=== PATIENT | female | born 1975 ===

== ENCOUNTER 2016-09-10 22:20 | Emergency (ER) | payer OTHER ==
[2016-09-10] MEDS ORDERED: Oxycodone/Acetaminophen 5/325 mg Tab PO STA (23:20)
[2016-09-10] MEDS ORDERED: Oxycodone/Acetaminophen 5/325 mg Tab ONE (23:27)
--- NOTE | 2016-09-11 00:12 | C.PDOC ---
History Of Present Illness 41 y/o female presents to ED with c/o right shoulder pain, radiating to arm and hand, for 4-5 days. Patient denies trauma, weakness, or numbness. Patient was seen by PMD for similar pain to lower rextremity, diagnosed with arthritis, however patients states pain in right shoulder feels worse. Patient applied IcyHot patches w/o relief; no pain meds taken. Time Seen by Provider: 09/10/16 23:06 Chief Complaint (Nursing): Upper Extremity Problem/Injury History Per: Patient History/Exam Limitations: no limitations Onset/Duration Of Symptoms: Days Current Symptoms Are (Timing): Still Present Quality: "Pain" Exacerbating Factor(s): Movement Recent travel outside of the [place]: No Past Medical History Reviewed: Historical Data, Nursing Documentation, Vital Signs Vital Signs: Last Vital Signs Temp 98.7 F 09/11/16 00:25 Pulse 75 09/11/16 00:25 Resp 18 09/11/16 00:25 BP 118/75 09/11/16 00:25 Pulse Ox 97 09/11/16 00:56 - Medical History PMH: Migraine Family History: States: Unknown Family Hx - Social History Hx Tobacco Use: No Hx Alcohol Use: No Hx Substance Use: No - Immunization History Hx Tetanus Toxoid Vaccination: No Hx Influenza Vaccination: No Hx Pneumococcal Vaccination: No Review Of Systems Except As Marked, All Systems Reviewed And Found Negative. Constitutional: Negative for: Fever, Chills Musculoskeletal: Positive for: Shoulder Pain, Arm Pain Skin: Negative for: Rash Neurological: Negative for: Weakness, Numbness Physical Exam - Physical Exam Appears: Non-toxic, No Acute Distress Skin: Warm, Dry Head: Atraumatic, Normacephalic Neck: No Midline Cervical Tenderness, No Paracervical Tenderness, No Step Off Deformity, Supple Chest: Symmetrical Cardiovascular: Rhythm Regular Respiratory: Normal Breath Sounds, No Rales, No Rhonchi, No Wheezing Back: Normal Inspection, No Vertebral Tenderness, No Paraspinal Tenderness Extremity: Normal ROM, Tenderness (anterior right shoulder), Capillary Refill ( < 2 sec. ), No Deformity, No Swelling, Other (full ROM right shoulder w/ pain ) Extremity: Bilateral: Normal Color And Temperature Pulses: Left Radial: Normal, Right Radial: Normal Neurological/Psych: Oriented x3, Normal Speech, Normal Cognition, Normal Motor, Normal Sensation ED Course And Treatment O2 Sat by Pulse Oximetry: 97 (RA) Pulse Ox Interpretation: Normal - Other Rad Right Shoulder X-Ray: Interpreted by Me Interpretation: calcified tendon shoulder joint, no fx or dislocation Progress Note: Treated with Percocet and Valium. Patient placed in arm sling for support. On reassessment, patient is resting comfortably, and is in no acute distress. Patient instructed to taked medications as directed and to follow up with clinic/PMD within 1-2 days. Disposition - Disposition Disposition: HOME/ ROUTINE Disposition Time: 00:09 Condition: STABLE Additional Instructions: Please follow up with your doctor Take meds as directed Return to ER if worse Prescriptions: Acetaminophen with Codeine [Tylenol with Codeine #3 Tablet] 1 each PO QID #14 tablet Naproxen [Naprosyn] 1 tab PO BID PRN #25 tab PRN Reason: Pain Instructions: Calcific Tendinitis (ED) - Clinical Impression Clinical Impression: Shoulder pain, right, Tendinitis - PA / ASSISTANT PLANT MANAGER / Resident Statement MD/DO has reviewed & agrees with the documentation as recorded. - Scribe Statement The provider has reviewed the documentation as recorded by the Misty Aguayo Provider Scribe Attestation: All medical record entries made by the Misty were at my direction and personally dictated by me. I have reviewed the chart and agree that the record accurately reflects my personal performance of the history, physical exam, medical decision making, and the department course for this patient. I have also personally directed, reviewed, and agree with the discharge instructions and disposition.
[2016-09-11 00:28] VITALS: BP 118/75; PULSE 75; RESP 18; TEMP 98.7
[2016-09-11 00:56] VITALS: O2SAT 97
--- NOTE | 2016-09-11 08:48 | RAD ---
PROCEDURE: Radiographs of the Right Shoulder HISTORY: pain COMPARISON: No prior. FINDINGS: BONES: Normal. No fracture. JOINTS: Normal. Glenohumeral and acromioclavicular joints preserved. No osteoarthritis. SOFT TISSUES: Normal. OTHER FINDINGS: None. IMPRESSION: Normal radiographs of the right shoulder.
== END 2016-09-11 00:28 | disposition home or self-care (01) ==
LOC: C.ER 22:20
DX: M25.511 Pain in right shoulder (principal); M75.31 Calcific tendinitis of right shoulder

== ENCOUNTER 2017-02-20 07:33 | Day surgery (SDC) | payer OTHER ==
[2017-02-20] MEDS ORDERED: Lidocaine 1% w Epi 1:100,000 Inj INJ ONE (08:05)
[2017-02-20] MEDS ORDERED: Acetaminophen-Codeine 300/30 mg Tab PO PRN (08:58)
[2017-02-20] MEDS ORDERED: Dextrose 5%/0.45% NS 1,000 ML IV SCH (09:00)
[2017-02-20] MEDS ORDERED: Midazolam 2 MG/2 ML VIAL ONE (10:27)
[2017-02-20] MEDS ORDERED: Propofol 10 mg/ml Inj (20 ML) ONE (10:27)
[2017-02-20] MEDS ORDERED: Succinylcholine Chloride 20 mg/ml Syr (5 ml) IV ONE (10:29)
[2017-02-20] MEDS ORDERED: Rocuronium 10 mg/ml (10 ml) ONE (10:29)
[2017-02-20] MEDS ORDERED: EPINEPHrine 1:1000 Nasal Sol(30mL) ONE (10:31)
[2017-02-20] MEDS ORDERED: ceFAZolin IV 2 gm in Dextrose 1 GM/50 ML BAG IVPB ONE (10:31)
[2017-02-20] MEDS ORDERED: Lactated Ringer's 1,000 ML IV ONE (10:35)
[2017-02-20] MEDS ORDERED: Phenylephrine 10 mg/ml Inj ONE (11:05)
[2017-02-20] MEDS ORDERED: HYDROmorphone 0.5 mg/0.5 ml ISec IVP PRN (11:58)
[2017-02-20 14:49] VITALS: BP 128/72; PULSE 80; RESP 18; TEMP 97; O2SAT 99
--- NOTE | 2017-02-20 22:43 | OP ---
PROCEDURE DATE: 02/20/2017 PREOPERATIVE DIAGNOSES: Deviated septum and enlarged turbinates. POSTOPERATIVE DIAGNOSES: Deviated septum and enlarged turbinates. PROCEDURE: Septoplasty and bilateral inferior turbinate reduction. SIGNIFICANT FINDINGS: Deviated septum and enlarged inferior turbinate. DESCRIPTION OF PROCEDURE: The patient was brought into the room, placed in supine position, anesthesia was initiated through an ET tube. The patient was draped in the usual manner. Adrenaline soaked pledgets were inserted into the nasal cavity that remained there for at least 5 minutes and removed. The septum was injected on both sides with lidocaine and with epinephrine. A Hemitransfixion incision was made on the left and a mucoperichondrial flap was raised. A vertical incision was made in the cartilage leaving a 1.5 cm anterior and superior strut and the mucoperichondrial flap was raised on the other side. Deviated portions of the bone and the cartilage were removed using forceps and chisel. The anterior portion of the septum was noted to be deviated and scored with a knife. Next, a quilting suture was used to suture the two flaps together and closed Hemitransfixion incision. Next, a 0-degree scope was inserted into the nasal cavity. The inferior turbinates were noted to be enlarged. They were reduced in sides, first on the left, then on the right going from an inferior to superior and anterior to posterior direction using scissors. Bleeding was controlled using suction cautery on both sides. Stents were placed. The patient was taken off of anesthesia and taken to the recovery room in stable manner. Chandan Roland MD
== END 2017-02-20 14:52 | disposition home or self-care (01) ==
LOC: C.SDS 07:33
PROVIDERS: ATTEND Otolaryngology
DX: J34.2 Deviated nasal septum (principal); J34.3 Hypertrophy of nasal turbinates
CPT/HCPCS: 30140; 30520; 88304; J0690; J1100; J1170; J2001; J2250; J2370; J2704; J3010; J7030; J7120

== ENCOUNTER 2017-10-10 15:25 | Emergency (ER) | payer OTHER ==
[2017-10-10 15:34] VITALS: TEMP 98.5; O2SAT 97
[2017-10-10 16:14] LABS: BASO % 0.3 % (0.0-2.0); HEMOGLOBIN 13.1 g/dL (11.0-16.0); LYMPH # 1.4 K/uL (1.0-4.3); LYMPH % 13.7 % (20.0-40.0); MEAN CELL VOLUME 90.1 fL (81.0-99.0); MEAN CORPUSCULAR HEMOGLOBIN 30.1 pg (27.0-31.0); MEAN CORPUSCULAR HGB CONC 33.4 g/dL (33.0-37.0); MEAN PLATELET VOLUME 9.5 fL (7.2-11.7); MONO # 0.5 K/uL (0.0-0.8); MONO % 4.4 % (0.0-10.0); NEUT # 8.5 K/uL (1.8-7.0); NEUT % 81.6 % (50.0-75.0); RBC 4.34 Mil/uL (3.80-5.20); RED CELL DISTRIBUTION WIDTH 13.4 % (11.5-14.5); WHITE BLOOD COUNT 10.5 K/uL (4.8-10.8)
[2017-10-10 16:25] LABS: ALB/GLOB RATIO 1.2 (1.0-2.1); ALBUMIN 4.6 g/dL (3.5-5.0); ALT/SGPT 23 U/L (9-52); AST/SGOT 24 U/L (14-36); BLOOD UREA NITROGEN 10 mg/dL (7-17); CALCIUM 9.6 mg/dl (8.6-10.4); GFR AFRICAN-AMERICAN > 60; GFR NON-AFRICAN AMERICAN > 60
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
--- NOTE | 2017-10-10 17:10 | CT ---
PROCEDURE: CT HEAD WITHOUT CONTRAST. HISTORY: altered mental status COMPARISON: CT 06/02/2013 TECHNIQUE: Axial computed tomography images were obtained through the head/brain without intravenous contrast. Radiation dose: Total exam DLP = 871 mGy-cm. This CT exam was performed using one or more of the following dose reduction techniques: Automated exposure control, adjustment of the mA and/or kV according to patient size, and/or use of iterative reconstruction technique. FINDINGS: HEMORRHAGE: No intracranial hemorrhage. BRAIN: No mass effect or edema. No atrophy or chronic microvascular ischemic changes. VENTRICLES: Unremarkable. No hydrocephalus. CALVARIUM: Unremarkable. PARANASAL SINUSES: Unremarkable as visualized. No significant inflammatory changes. MASTOID AIR CELLS: Unremarkable as visualized. No inflammatory changes. OTHER FINDINGS: None. IMPRESSION: No acute intracranial finding
[2017-10-10 17:13] LABS: HCG,QUALITATIVE URINE NEGATIVE (NEGATIVE)
[2017-10-10 17:19] LABS: SQUAMOUS EPITHIAL < 1 /hpf (0-5); URINE BACTERIA RARE (<OCC); URINE BILIRUBIN NEGATIVE (NEGATIVE); URINE BLOOD NEGATIVE (NEGATIVE); URINE CLARITY Clear (Clear); URINE COLOR Yellow (YELLOW); URINE GLUCOSE (UA) NORMAL (Normal); URINE LEUKOCYTE ESTERASE NEG Leu/uL (Negative); URINE PROTEIN NEGATIVE (NEGATIVE); URINE UROBILINOGEN NORMAL mg/dL (0.2-1.0)
[2017-10-10 17:23] LABS: BARBITURATES, UR NEGATIVE (NEGATIVE); BENZODIAZEPINES, UR NEGATIVE (NEGATIVE); OPIATES, UR NEGATIVE (NEGATIVE); PHENCYCLIDINE, UR NEGATIVE (NEGATIVE)
[2017-10-10 18:06] VITALS: BP 101/52; PULSE 79; RESP 18
== END 2017-10-10 18:25 | disposition home or self-care (01) ==
LOC: C.ER 15:25
DX: F63.81 Intermittent explosive disorder (principal)

== ENCOUNTER 2017-11-17 14:49 | Emergency (ER) | payer OTHER ==
[2017-11-17 14:52] VITALS: BP 104/71; PULSE 63; RESP 16; TEMP 98.8; O2SAT 100
--- NOTE | 2017-11-17 15:09 | C.PDOC ---
History Of Present Illness 42 year old female is BIBA to the emergency department status-post slipping and falling on a wet floor in [employer]. Patient reports that she fell backwards and reports pain to her left side. Patient is a poor historian, providing unclear details regarding the fall. Time Seen by Provider: 11/17/17 14:56 Chief Complaint (Nursing): Back Pain History Per: Patient, Family (daughter), Interlocker Maintainer (daughter) History/Exam Limitations: language barrier Quality Of Discomfort: "Pain" Past Medical History Reviewed: Historical Data, Nursing Documentation, Vital Signs Vital Signs: Last Vital Signs Temp 98.8 F 11/17/17 14:51 Pulse 63 11/17/17 14:51 Resp 16 11/17/17 14:51 BP 104/71 11/17/17 14:51 Pulse Ox 100 11/17/17 15:13 - Medical History PMH: Arthritis ("GENERALIZED"), Migraine Denies: Diabetes, Hepatitis, HIV, HTN, Seizures, Sexually Transmitted Disease Surgical History: No Surg Hx Family History: States: No Known Family Hx - Social History Hx Tobacco Use: No Hx Alcohol Use: No Hx Substance Use: No - Immunization History Hx Tetanus Toxoid Vaccination: No Hx Influenza Vaccination: No Hx Pneumococcal Vaccination: No Review Of Systems Review Of Systems: ROS cannot be obtained secondary to pt's inabilty to answer questions. Physical Exam - Physical Exam Appears: Non-toxic, No Acute Distress Skin: Warm, Dry Head: Atraumatic, Normacephalic Eye(s): bilateral: Normal Inspection Nose: Normal Neck: No Midline Cervical Tenderness, Paracervical Tenderness (left-sided), Supple Chest: Symmetrical, No Tenderness Cardiovascular: Rhythm Regular, No Murmur Respiratory: Normal Breath Sounds, No Decreased Breath Sounds, No Rales, No Rhonchi, No Wheezing Gastrointestinal/Abdominal: Normal Exam, Soft, No Tenderness, No Guarding, No Rebound Back: Normal Inspection, No Vertebral Tenderness, Paraspinal Tenderness (left lumbar) Pelvic: Other (left inguinal tenderness) Extremity: Normal ROM (of the knees), Tenderness (left knee, left lateral malleolus), Swelling (mild, to the left lateral malleolus) Pulses: Left Dorsalis Pedis: Normal, Right Dorsalis Pedis: Normal Neurological/Psych: Oriented x3, Normal Speech, Normal Cognition, Normal Motor, Normal Sensation ED Course And Treatment O2 Sat by Pulse Oximetry: 100 (RA) Pulse Ox Interpretation: Normal Medical Decision Making Medical Decision Making: Patient reports a rash from aspirin but takes Motrin at home for her migraines. Plan: Toradol 30mg IM POC Urine Test 1528 pt appears well, in no acute distress. less pain s/p toradol. d/c home Disposition Counseled Patient/Family Regarding: Diagnosis, Need For Followup, Rx Given - Disposition Referrals: [facility] [Outside] Disposition: HOME/ ROUTINE Disposition Time: 15:29 Condition: GOOD Additional Instructions: Por favor phuong un seguimiento con corbett mdico o n clnica mdshayan en 1-2 denis. Rhodes medicamentos recetados si es necesario para el dolor. Puede sentirse un poco ms dolorido maana; eso es comn, marcio comenzar a sentirse mejor. Regrese a la troy de emergencias por cualquier sntoma peor. Please follow up with your doctor or medical clinic in 1-2 days. Take medications as prescrbied if needed for pain. You may feel a bit more sore tomorrow; that is comnon, but will start to feel better. Return to ER for any worse symptoms. Prescriptions: Acetaminophen [Tylenol 325mg tab] 650 mg PO Q6 #30 tab Instructions: Muscle Strain (DC) Forms: Gen Discharge Inst Barbadian, [facility] (Barbadian) - Clinical Impression Clinical Impression: Muscle strain, multiple sites, Fall from slipping on wet surface - PA / VIDEO MANAGER / Resident Statement MD/DO has reviewed & agrees with the documentation as recorded. - Scribe Statement The provider has reviewed the documentation as recorded by the Scribe (Gabriel Kahn) All medical record entries made by the Scribe were at my direction and personally dictated by me. I have reviewed the chart and agree that the record accurately reflects my personal performance of the history, physical exam, medical decision making, and the department course for this patient. I have also personally directed, reviewed, and agree with the discharge instructions and disposition.
== END 2017-11-17 15:42 | disposition home or self-care (01) ==
LOC: C.ER 14:49
DX: T14.8XXA Other injury of unspecified body region, initial encounter (principal); W01.0XXA Fall on same level from slipping, tripping and stumbling without subsequent striking against object, initial encounter
CPT/HCPCS: 96372; 99284; J1885

== ENCOUNTER 2018-07-05 17:06 | Emergency (ER) | payer OTHER ==
[2018-07-05] MEDS ORDERED: Sodium Chloride 0.9% 1,000 ML IV SCH (17:30)
--- NOTE | 2018-07-05 17:34 | C.PDOC ---
History Of Present Illness Patient is a 43 year old female who presents to the ED c/o a 1 month history of dizziness with associated nausea. Patient was evaluated by her PMD and was supposed to have testing, but failed to complete them. She denies any headache, visual changes, CP, or SOB. Time Seen by Provider: 07/05/18 17:21 Chief Complaint (Nursing): Dizziness/Lightheaded History Per: Patient History/Exam Limitations: no limitations Onset/Duration Of Symptoms: Other (1 month) Current Symptoms Are (Timing): Still Present Recent travel outside of the [place]: No Additional History Per: Patient Past Medical History Reviewed: Historical Data, Nursing Documentation, Vital Signs Vital Signs: Last Vital Signs Temp 97.9 F 07/05/18 17:09 Pulse 89 07/05/18 17:09 Resp 20 07/05/18 17:09 BP 101/60 07/05/18 17:09 Pulse Ox 100 07/05/18 17:09 - Medical History PMH: Arthritis ("GENERALIZED"), Migraine Denies: Diabetes, Hepatitis, HIV, HTN, Seizures, Sexually Transmitted Disease Surgical History: No Surg Hx Family History: States: Unknown Family Hx - Social History Hx Tobacco Use: No Hx Alcohol Use: No Hx Substance Use: No - Immunization History Hx Tetanus Toxoid Vaccination: No Hx Influenza Vaccination: No Hx Pneumococcal Vaccination: No Review Of Systems Except As Marked, All Systems Reviewed And Found Negative. Neurological: Positive for: Dizziness Physical Exam - Physical Exam Appears: Non-toxic, No Acute Distress Skin: Normal Color, Warm, Dry Head: Atraumatic, Normacephalic Eye(s): bilateral: Normal Inspection, PERRL, EOMI Nose: Normal Oral Mucosa: Moist Chest: Symmetrical Cardiovascular: Rhythm Regular, No Murmur Respiratory: Normal Breath Sounds, No Rales, No Rhonchi, No Wheezing Gastrointestinal/Abdominal: Soft, No Tenderness Extremity: Normal ROM Neurological/Psych: Oriented x3, Normal Speech ED Course And Treatment - Laboratory Results Result Diagrams: 07/05/18 17:46 07/05/18 17:46 ECG Rhythm: Sinus Rhythm Interpretation Of ECG: Normal axis, normal intervals, no ST/T wave changes Rate From EC O2 Sat by Pulse Oximetry: 100 (on RA) Pulse Ox Interpretation: Normal - CT Scan/US CT Head Other Rad Studies (CT/US): Read By Radiologist, Radiology Report Reviewed CT/US Interpretation: IMPRESSION: No acute intracranial pathology identified. Under aeration of the mastoid air cells. Medical Decision Making Medical Decision Making: Plan: CAT Head EKG Labs POC Urine Urinalysis Antivert 25mg PO Zofran 4mg IVP IV FLuids Sudafed 30mg PO Assessment: dizziness 1854 - patient improved. No further dizziness. Will discharge home. Disposition Counseled Patient/Family Regarding: Studies Performed, Diagnosis, Need For Followup, Rx Given - Disposition Referrals: [facility] [Outside] Disposition: HOME/ ROUTINE Disposition Time: 18:54 Condition: STABLE Additional Instructions: follow up with your doctor or clinic within 2 days call to make an appointment take medications as prescribed return to hospital if symptoms worsens or progress Prescriptions: Meclizine [Meclizine*] 25 mg PO TID PRN #15 tab PRN Reason: Dizziness Ondansetron ODT [Zofran ODT] 4 mg PO TID PRN #12 odt PRN Reason: Nausea/Vomiting Pseudoephedrine HCl [Sudafed] 30 mg PO TID PRN #15 tablet PRN Reason: Cough And Congestion Instructions: Vertigo (a Type of Dizziness) Forms: Gen Discharge Inst Emirati, [facility] (Emirati) - Clinical Impression Clinical Impression: Dizziness - Scribe Statement The provider has reviewed the documentation as recorded by the Misty Duff All medical record entries made by the Brittibyessenia were at my direction and personally dictated by me. I have reviewed the chart and agree that the record accurately reflects my personal performance of the history, physical exam, medical decision making, and the department course for this patient. I have also personally directed, reviewed, and agree with the discharge instructions and di sposition.
[2018-07-05 17:49] LABS: BASO # 0.1 K/uL (0.0-0.2); EOS # 0.1 K/uL (0.0-0.7); EOS % 1.1 % (0.0-4.0); LYMPH % 25.2 % (20.0-40.0); MEAN CELL VOLUME 91.4 fL (81.0-99.0); MEAN CORPUSCULAR HEMOGLOBIN 29.8 pg (27.0-31.0); MEAN CORPUSCULAR HGB CONC 32.6 g/dL (33.0-37.0); MEAN PLATELET VOLUME 9.4 fL (7.2-11.7); MONO # 0.6 K/uL (0.0-0.8); MONO % 7.8 % (0.0-10.0); NEUT # 5.2 K/uL (1.8-7.0); NEUT % 64.9 % (50.0-75.0); RBC 4.37 Mil/uL (3.80-5.20); RED CELL DISTRIBUTION WIDTH 13.7 % (11.5-14.5)
[2018-07-05] MEDS ORDERED: Sodium Chloride 0.9% 1,000 ML ONE (17:54)
[2018-07-05 17:55] LABS: SQUAMOUS EPITHIAL 10 /hpf (0-5); URINE BACTERIA RARE (<OCC); URINE BILIRUBIN NEGATIVE (NEGATIVE); URINE BLOOD NEGATIVE (NEGATIVE); URINE CLARITY Hazy (Clear); URINE COLOR Yellow (YELLOW); URINE GLUCOSE (UA) NORMAL (Normal); URINE LEUKOCYTE ESTERASE NEG Leu/uL (Negative); URINE PROTEIN NEGATIVE (NEGATIVE); URINE UROBILINOGEN NORMAL mg/dL (0.2-1.0)
[2018-07-05 18:03] LABS: ALB/GLOB RATIO 1.4 (1.0-2.1); ALBUMIN 4.7 g/dL (3.5-5.0); ALT/SGPT 29 U/L (9-52); AST/SGOT 28 U/L (14-36); BLOOD UREA NITROGEN 10 mg/dL (7-17); CALCIUM 9.4 mg/dl (8.6-10.4); GFR NON-AFRICAN AMERICAN > 60
--- NOTE | 2018-07-05 18:33 | CT ---
Date of service: 07/05/2018 PROCEDURE: CT HEAD WITHOUT CONTRAST. HISTORY: dizziness COMPARISON: Noncontrast head CT performed 10/10/17 TECHNIQUE: Axial computed tomography images were obtained through the head/brain without intravenous contrast. Radiation dose: Total exam DLP = 992.75 mGy-cm. This CT exam was performed using one or more of the following dose reduction techniques: Automated exposure control, adjustment of the mA and/or kV according to patient size, and/or use of iterative reconstruction technique. FINDINGS: HEMORRHAGE: No intracranial hemorrhage. BRAIN: No mass effect or edema. The herbert-white matter differentiation appears intact. Please note that MRI with diffusion imaging is more sensitive in the detection of acute ischemic event. VENTRICLES: No hydrocephalus. CALVARIUM: Unremarkable. PARANASAL SINUSES: Unremarkable as visualized. No significant inflammatory changes. MASTOID AIR CELLS: Under aeration of the mastoid air cells. OTHER FINDINGS: None. IMPRESSION: No acute intracranial pathology identified. Under aeration of the mastoid air cells.
[2018-07-05 19:10] VITALS: BP 121/78; PULSE 68; RESP 15; TEMP 98; O2SAT 99
--- NOTE | 2018-07-08 12:46 | CARD ---
APPROVED REPORT Date of service: 07/05/2018 EKG Measurement Heart [id number] <Conclusion> Normal sinus rhythm Normal ECG
== END 2018-07-05 19:08 | disposition home or self-care (01) ==
LOC: C.ER 17:06
DX: R42 Dizziness and giddiness (principal)
CPT/HCPCS: 70450; 80053; 81001; 81025; 85025; 96374; 99285; J2405; J7030